=== PATIENT | female | born 1945 | race Caucasian/White ===

== ENCOUNTER 2020-09-17 09:03 | Day surgery (SDC) | payer MEDICARE, BC ==
[2020-09-17] VITALS (14 sets, daily range): BP systolic 92–122; BP diastolic 51–72
[~2020-09-17] VITALS: Ht 152.4 cm; Wt 63.0 kg
[2020-09-17] MEDS ORDERED: normal saline 1000ml 1,000 ML IV SCH (09:40)
[2020-09-17] MEDS ORDERED: ONDA8TAB65 PO (09:46)
[2020-09-17] MEDS ORDERED: [UNRECOGNIZED DRUG - OTHER] TOP (09:46)
[2020-09-17] MEDS ORDERED: VALS1TAB81 PO (09:46)
[2020-09-17] MEDS ORDERED: SYN0.088T PO (09:46)
[2020-09-17] MEDS ORDERED: ALEN70TA60 PO (09:46)
[2020-09-17] MEDS ORDERED: PANT40TA54 PO (09:46)
[2020-09-17] MEDS ORDERED: ROSU20TA2 PO (09:46)
[2020-09-17] MEDS ORDERED: prochlorperazine PO (09:46)
[2020-09-17] MEDS ORDERED: guaiFENesin/codeine phos 10ml UD oral syrup PO PRN (09:55)
[2020-09-17 10:03] LABS: BASOPHILS % (AUTO) 0.3 % (0-1); EOSINOPHILS % (AUTO) 0.2 % (0-6); HEMATOCRIT 31.9 % (35.0-45.0); HEMOGLOBIN 10.6 g/dl (12.0-16.0); LYMPHOCYTES # (AUTO) 0.8 X10'3 (1.1-4.8); LYMPHOCYTES % (AUTO) 10.8 % (21-51); MEAN CORPUSCULAR HEMOGLOBIN 31.1 PG (27.0-31.0); MEAN CORPUSCULAR HGB CONC 33.2 g/dL (33.0-36.5); MEAN CORPUSCULAR VOLUME 93.6 FL (78-98); MEAN PLATELET VOLUME 6.8 FL (7.4-10.4); MONOCYTES # (AUTO) 0.7 X10'3 (0-0.9); MONOCYTES % (AUTO) 9.9 % (2-12); NEUTROPHILS # (AUTO) 5.5 X10'3 (1.8-7.7); NEUTROPHILS % (AUTO) 78.8 % (42-75); PLATELET COUNT 256 X10'3 (140-440); RED BLOOD COUNT 3.41 X10'6 (4.20-5.60); RED CELL DISTRIBUTION WIDTH 16.4 % (11.5-14.5)
[2020-09-17] MEDS ORDERED: midazolam 1 mg/ML 2ml injection ONE (10:58)
[2020-09-17] MEDS ORDERED: fentaNYL/PF 50MCG/1 ML 2ML syringe ONE (10:59)
--- NOTE | 2020-09-17 16:00 | NUR ---
recd. call from IR, CHRISTIANO ONOFRE reviewed second X-ray and pt ok to be discharged.
== END 2020-09-17 14:18 | disposition home or self-care (01) ==
LOC: SSTAY O 09:03
PROVIDERS: ATTEND Radiology Diagnostic Radiology
DX: J94.8 Other specified pleural conditions (principal); C78.2 Secondary malignant neoplasm of pleura; C34.11 Malignant neoplasm of upper lobe, right bronchus or lung; E03.9 Hypothyroidism, unspecified; E78.5 Hyperlipidemia, unspecified; I10 Essential (primary) hypertension; Z90.49 Acquired absence of other specified parts of digestive tract; Z98.890 Other specified postprocedural states; Z79.899 Other long term (current) drug therapy
CPT/HCPCS: 32400; 36415; 71045; 77012; 85025; 85610; 88305; 88341; 88342; J2250; J3010; J7030; 32408; 88173